=== PATIENT | female | born 1980 | race African-American/Black ===

== ENCOUNTER 2018-10-17 11:17 | Emergency (ER) | payer SELFPAY ==
[~2018-10-17] VITALS: Ht 167.6 cm; Wt 115.8 kg
[2018-10-17] MEDS ORDERED: KETOROLAC 60MG/2ML VIAL IM ONE (16:45)
[2018-10-17 19:45] VITALS: BP 132/88
== END 2018-10-17 20:00 | disposition home or self-care (01) ==
LOC: ER 11:17
DX: S16.1XXA Strain of muscle, fascia and tendon at neck level, initial encounter (principal); S63.601A Unspecified sprain of right thumb, initial encounter; M62.838 Other muscle spasm; V89.2XXA Person injured in unspecified motor-vehicle accident, traffic, initial encounter; Y93.89 Activity, other specified; Y92.89 Other specified places as the place of occurrence of the external cause; Y99.8 Other external cause status
CPT/HCPCS: 73130; 81025; 96372; 99283; J1885